=== PATIENT | male | born 1950 | race Caucasian/White ===

== ENCOUNTER → 2017-09-02 | Outpatient (CLI) | payer MEDICARE ==
--- NOTE | 2017-09-02 14:32 | XR ---
EXAMINATION TYPE: XR chest 2V DATE OF EXAM: 09/02/2017 COMPARISON: Chest x-ray October 05, 2013. HISTORY: Persistent cough for 2 weeks. TECHNIQUE: Frontal and lateral views of the chest are obtained. FINDINGS: There is no focal air space opacity, pleural effusion, or pneumothorax seen. The cardiac silhouette size is within normal limits. The osseous structures are demineralized. IMPRESSION: No suspicious acute infiltrate. No significant change from prior.
== END | disposition home or self-care (01) ==
LOC: RADXRMAIN 14:13
PROVIDERS: ATTEND Internal Medicine Geriatric Medicine
DX: R05 Cough (principal)
CPT/HCPCS: 71046

== ENCOUNTER 2018-11-25 11:43 | Day surgery (SDC) | payer MEDICARE ==
[2018-11-22 15:48] VITALS: BMI 30.9
[~2018-11-25 11:43] MED LIST: LACTATED RINGERS 1,000 ML IV SCH
[2018-11-25 12:36] VITALS: RESP 16; TEMP 98.1
[2018-11-25] MEDS ORDERED: LIDOCAINE 1% 20 ML VIAL (10MG/ML) FOR IV START INTRADERMA ONE (12:46)
[2018-11-25] MEDS ORDERED: PROPOFOL 10 MG/ML 20 ML VIAL IV ONE (13:29)
--- NOTE | 2018-11-25 13:49 | P.PCN ---
Date of Procedure: 11/25/18 Procedure(s) Performed: BRIEF HISTORY: Patient is a 68-year-old pleasant white male male, scheduled for an elective colonoscopy as a part of evaluation of prior history of colon polyps. Last colonoscopy was 5 years ago. PROCEDURE PERFORMED: Colonoscopy. PREOPERATIVE DIAGNOSIS: History of colon polyps. IV sedation per Anesthesia. PROCEDURE: After informed consent was obtained, the patient, was brought into the endoscopy unit. IV sedation was administered by Anesthesia under continuous monitoring. Digital rectal examination was normal. Initially the Olympus CF-160 flexible video colonoscope was then inserted in the rectum, gradually advanced into the cecum without any difficulty. Careful examination was performed as the scope was gradually being withdrawn. Ileocecal valve and the appendiceal orifice were visualized and appeared normal. Prep was excellent. Mucosa of the cecum, ascending colon, transverse colon, descending colon, sigmoid colon, and rectum appeared normal. Retroflexion was performed in the rectum and no lesions were seen. The patient tolerated the procedure well. IMPRESSION: Normal-appearing colon from rectum to cecum with no evidence of colitis or colorectal neoplasia . RECOMMENDATIONS: Findings of this examination were discussed with the patient as well as his family. He was advised to have a repeat surveillance colonoscopy in 5 years from now because of the prior history of colon polyps
[2018-11-25 14:18] VITALS: BP 157/81; PULSE 63
== END 2018-11-25 14:33 | disposition home or self-care (01) ==
LOC: ORWHC2ENDO 11:43
PROVIDERS: ATTEND Internal Medicine Gastroenterology
DX: Z12.11 Encounter for screening for malignant neoplasm of colon (principal); Z86.010 Personal history of colon polyps; Z88.0 Allergy status to penicillin; E78.5 Hyperlipidemia, unspecified; K21.9 Gastro-esophageal reflux disease without esophagitis; M19.90 Unspecified osteoarthritis, unspecified site; Z79.82 Long term (current) use of aspirin; Z79.899 Other long term (current) drug therapy
CPT/HCPCS: J2704; G0105

== ENCOUNTER → 2019-03-06 | Outpatient (CLI) | payer MEDICARE ==
--- NOTE | 2019-03-06 14:51 | XR ---
EXAMINATION TYPE: XR lumbar spine 2 or 3V DATE OF EXAM: 03/06/2019 Comparison: None Clinical History: 69-year-old male M54.9 Back pain Findings: Hypertrophic facet arthropathy throughout. Grade 1 anterolisthesis at L4-L5. Mild degenerative disc d isease throughout with disc space narrowing and endplate spondylosis. Vertebral body heights appear m aintained. Disc height loss thoracolumbar junction. Impression: 1. Mild degenerative disc disease throughout. 2. Hypertrophic facet arthropathy with degenerative grade 1 anterolisthesis at L4-L5. 3. No vertebral compression collapse.
== END | disposition home or self-care (01) ==
LOC: RADXRMAIN 10:39
PROVIDERS: ATTEND Internal Medicine Geriatric Medicine
DX: M51.37 Other intervertebral disc degeneration, lumbosacral region (principal); M43.16 Spondylolisthesis, lumbar region; M46.96 Unspecified inflammatory spondylopathy, lumbar region
CPT/HCPCS: 72100

== ENCOUNTER → 2020-10-23 | Outpatient (CLI) | payer MEDICARE ==
[2020-10-23 09:03] VITALS: BP 162/75; PULSE 69; RESP 16; TEMP 97.6
--- NOTE | 2020-10-23 09:28 | P.PAINCN ---
History of Present Illness - Reason for Consult Consult date: 10/23/20 - History of Present Illness This 70 years old male with a chronic history of severe low back pain, accident 20 years ago after he fell on ice, patient reported that intensity of the pain increased over time he had multiple interventional pain procedures, and the last procedure was done in February 2020, which was RFA of the medial branch lumbar area ,L3,L4 L5 ,bila , patient reported that he got around 80% improvement of his low back pain after an RFA, currently is complaining of severe low back pain with radiation to the buttock area bilaterally, to instill the pain increases with any activity interfere with the quality of life, and trying to do home exercise and he had no benefit from it , he denies any motor or sensory deficit he denies any fever or night sweats Past Medical History Past Medical History: Blood Disorder, Hyperlipidemia, Musculoskeletal Disorder, Osteoarthritis (OA) Additional Past Medical History / Comment(s): back pain,spinal stenosis HX OF SPHEROCYTOSIS, hx colon polyps History of Any Multi-Drug Resistant Organisms: None Reported Past Surgical History: Joint Replacement, Orthopedic Surgery Additional Past Surgical History / Comment(s): both knees replaced, left knee surg., SPLENECTOMY, KYLE CARPAL TUNNEL,KYLE HAND 4TH FINGER TRIGGER RELEASE, RT ROTATOR CUFF, left foot surgery Past Anesthesia/Blood Transfusion Reactions: No Reported Reaction Past Psychological History: No Psychological Hx Reported Smoking Status: Former smoker Past Alcohol Use History: Occasional Additional Past Alcohol Use History / Comment(s): quit smoking ,smoked approx 20 yrs Past Drug Use History: None Reported - Past Family History Father Family Medical History: No Reported History Medications and Allergies Home Medications Medication Instructions Recorded Confirmed Type Aspirin 325 mg PO DAILY 11/22/18 10/23/20 History Loratadine [Claritin] 10 mg PO DAILY 11/22/18 10/23/20 History Conway-3 Fatty Acids/Fish Oil [Fish 400 mg PO DAILY 11/22/18 10/23/20 History Oil 1,000 mg Softgel] Omeprazole [PriLOSEC] 20 mg PO DAILY 11/22/18 10/23/20 History Gabapentin 600 mg PO TID 10/22/20 10/23/20 History Losartan Potassium 50 mg PO DAILY 10/22/20 10/23/20 History Pravastatin Sodium [Pravachol] 40 mg PO DAILY 10/22/20 10/23/20 History Allergies Allergy/AdvReac Type Severity Reaction Status Date / Time Penicillins Allergy Anaphylaxis Verified 10/22/20 16:02 Physical Exam Vitals: Vital Signs Temp Pulse Resp BP Pulse Ox 10/23/20 08:59 97.6 F 69 16 162/75 99 Intake and Output 10/22/20 10/23/20 10/23/20 22:59 06:59 14:59 Other: Weight 87.543 kg Physical Examinations : -Constitutiona : Cooperative , not in acute distress . -HEENT : nech : supple , no Lymphadenopathy , normal thyroid size . : eyes : no ptosis , no icterus, no phot ophobia . - neurologic : Cranial nerve II to XII intact , no focal neurological deffecit . -psychatric : alert , oriented X 3 , appropriate affect , intact judgment and insight . -Lymphatic : no Lymphadenopathy . - musculoskeltal : Lumber spine moter stegnth lower extremities ,thigh and legs 5/5 Right side , 5/5 Left side deep tendon reflexes : normal Knee Jerk , normal ankle Jerk lumber facet Loading Test =positive Right , positive Left Range of motion of the lumbar spine Flexion 30 degrees, extension 10 degrees strait leg raising test = positive at 45 degree Fabere test= positive Right , and positive LT . tenderness over the Sacroiliac joint on the Right , and Left sides Results Comments: MRI of the lumbar spine= L3 4 L4 5 central canal stenosis, L3 4 L4 5 bulging disc disease, L3 4 L4 5 and L5-S1 facet joint hypertrophy Assessment and Plan Plan: Assessment and plan=1-Lumbar spondylosis with lumbar facet arthropathy without myelopathy. 2-lumbar spinal stenosis. 3-lumbar degenerative disc disease. Patient had RFA of the medial branch lumbar area done last year, he had 80% improvement of his low back pain, and to be good cand idate Her repeat RFA of the medial branch lumbar area at L3,L4 ,L5 bilaterally Time with Patient: Greater than 30 PQRS Measure Charge Sheet Measure #130: Documentation of Current Meds in Medical Chart: Patient's medications documented in chart Measure #226: Tobacco Use: Screen & Cessation Intervention: Pt screened for tobacco use AND intervention given Measure #111: Pneumonia Vaccination: Pneumococcal vaccine NOT administered or previously given Measure #47: Advance Care Plan: Advance care planning discussed & documented, pt chose/unable to give Measure #412: Opioid Treatment Agreement: No documentation of signed opioid treatment agreement Measure #408: Opioid Therapy Follow-up Evaluation: Patient had NO f/u eval minimum every 3 months during opioid therapy Measure #317: Preventitive Care & Scrn High Bld Press & F/U: Pre-hypertensive or hypertensive BP documented, pt will f/u with PCP Measure #128: Body Mass Index (BMI) Screening & Follow-up: BMI documented ABOVE normal parameters - f/u documented Measure #131: Pain Assessment & Follow-up: Pain positive & plan documented, Follow-up scheduled Measure #431: Unhealthy Alcohol Use Preventative Care & Scrn: Patient not identified as an unhealthy alcohol user PQRS Narrative: Smoking Status Former smoker Blood Pressure 162/75 Pain Intensity [Back] 5 Scale Used Numeric (1 - 10) Hx Alcohol Use (MH) Yes Home Medications: Ambulatory Orders Aspirin 325 mg PO DAILY 11/22/18 Loratadine [Claritin] 10 mg PO DAILY 11/22/18 Conway-3 Fatty Acids/Fish Oil [Fish Oil 1,000 mg Softgel] 400 mg PO DAILY 11/22/18 Omeprazole [PriLOSEC] 20 mg PO DAILY 11/22/18 Gabapentin 600 mg PO TID 10/22/20 Losartan Potassium 50 mg PO DAILY 10/22/20 Pravastatin Sodium [Pravachol] 40 mg PO DAILY 10/22/20
== END ==
LOC: PNWHC3 08:11
PROVIDERS: ATTEND Specialist
DX: M47.816 Spondylosis without myelopathy or radiculopathy, lumbar region (principal); M51.36 Other intervertebral disc degeneration, lumbar region; M48.061 Spinal stenosis, lumbar region without neurogenic claudication; Z98.890 Other specified postprocedural states; E78.5 Hyperlipidemia, unspecified; M19.90 Unspecified osteoarthritis, unspecified site; Z87.891 Personal history of nicotine dependence; Z88.0 Allergy status to penicillin; Z79.899 Other long term (current) drug therapy
CPT/HCPCS: 99211

== ENCOUNTER 2020-11-12 05:38 | Emergency (ER) | payer MEDICARE ==
[2020-11-12 05:44] VITALS: RESP 18; TEMP 97.8
[2020-11-12] MEDS ORDERED: MORPHINE SULFATE 4 MG/ML SYRINGE IV STA (05:47)
[2020-11-12] MEDS ORDERED: SODIUM CHLORIDE 0.9% 1,000 ML IV STA (05:47)
--- NOTE | 2020-11-12 05:49 | ED ---
Abdominal Pain HPI - General Chief Complaint: Abdominal Pain Stated Complaint: Abd Pain Time Seen by Provider: 11/12/20 05:40 Source: patient, RN notes reviewed, old records reviewed Mode of arrival: wheelchair Limitations: no limitations - History of Present Illness Initial Comments: This is a 70-year-old male to the ER for evaluation. Patient started with abdominal pain epigastric abdominal pain radiating to his back with bolus and bloating that began last night. Patient was able to sleep but awoke will get up from sleep today. Patient is afebrile no sweating no shortness of breath. He did have a recent fall but states fall did not cause him any pain. Patient's history of a splenectomy. Recent starting of high blood pressure Medication b lood pressures been controlled MD Complaint: abdominal pain -: hour(s) Location: suprapubic Radiation: epigastric, back Migration to: L flank, R flank Severity scale (1-10): 7 Quality: sharp Consistency: constant Improves With: nothing Worsens With: nothing Context: other (none) Associated Symptoms: nausea Treatments Prior to Arrival: other (none) - Related Data Home Medications Medication Instructions Recorded Confirmed Loratadine [Claritin] 10 mg PO DAILY 11/22/18 11/12/20 Adamant-3 Fatty Acids/Fish Oil [Fish 1 cap PO DAILY 11/22/18 11/12/20 Oil 1,000 mg Softgel] Omeprazole [PriLOSEC] 20 mg PO DAILY 11/22/18 11/12/20 Losartan Potassium 50 mg PO DAILY 10/22/20 11/12/20 Pravastatin Sodium [Pravachol] 40 mg PO HS 10/22/20 11/12/20 Aspirin EC [Ecotrin] 325 mg PO DAILY 11/12/20 11/12/20 Gabapentin 600 mg PO TID 11/12/20 11/12/20 Allergies Allergy/AdvReac Type Severity Reaction Status Date / Time Penicillins Allergy Anaphylaxis Verified 11/12/20 07:23 Review of Systems ROS Statement: Those systems with pertinent positive or pertinent negative responses have been documented in the HPI. ROS Other: All systems not noted in ROS Statement are negative. Past Medical History Past Medical History: Blood Disorder, Hyperlipidemia, Musculoskeletal Disorder, Osteoarthritis (OA) Additional Past Medical History / Comment(s): back pain,spinal stenosis HX OF SPHEROCYTOSIS, hx colon polyps History of Any Multi-Drug Resistant Organisms: None Reported Past Surgical History: Joint Replacement, Orthopedic Surgery Additional Past Surgical History / Comment(s): both knees replaced, left knee surg., SPLENECTOMY, KYLE CARPAL TUNNEL,KYLE HAND 4TH FINGER TRIGGER RELEASE, RT ROTATOR CUFF, left foot surgery Past Anesthesia/Blood Transfusion Reactions: No Reported Reaction Past Psychological History: No Psychological Hx Reported Smoking Status: Former smoker Past Alcohol Use History: Occasional Past Drug Use History: None Reported - Past Family History Father Family Medical History: No Reported History General Exam General appearance: alert, in no apparent distress Head exam: Present: atraumatic, normocephalic, normal inspection Eye exam: Present: normal appearance, PERRL, EOMI. Absent: scleral icterus, c onjunctival injection, periorbital swelling ENT exam: Present: normal exam, mucous membranes moist Neck exam: Present: normal inspection. Absent: tenderness, meningismus, lymphadenopathy Respiratory exam: Present: normal lung sounds bilaterally. Absent: respiratory distress, wheezes, rales, rhonchi, stridor Cardiovascular Exam: Present: regular rate, normal rhythm, normal heart sounds. Absent: systolic murmur, diastolic murmur, rubs, gallop, clicks GI/Abdominal exam: Present: soft, distended, guarding, normal bowel sounds. Absent: tenderness, rebound, rigid Extremities exam: Present: normal inspection, full ROM, normal capillary refill. Absent: tenderness, pedal edema, joint swelling, calf tenderness Back exam: Present: normal inspection Neurological exam: Present: alert, oriented X3, CN II-XII intact Psychiatric exam: Present: normal affect, normal mood Skin exam: Present: warm, dry, intact, normal color. Absent: rash Course Vital Signs 11/12/20 11/12/20 05:42 08:03 Temperature 97.8 F 97.8 F Pulse Rate 65 74 Respiratory 18 18 Rate Blood Pressure 170/78 151/75 O2 Sat by Pulse 99 96 Oximetry - Reevaluation(s) Reevaluation #1: 11/12/20 06:47 Medical records reviewed Reevaluation #2: 11/12/20 06:47 Patient resting with pain control spoke with patient regarding results and findins, questions answered. Patient offered cardiac observation which he is currently refusing. Medical Decision Making - Medical Decision Making 70 male to the ED for abdominal pain, patient has abdominal pain now resolved, patient informed of results, understands that we are unable to clear him from a cardiac standpoint and that he will return if symptoms return. Patient does not wasn to stay for further evaluation. - Lab Data Result diagrams: 11/12/20 05:55 11/12/20 05:55 Lab Results 11/12/20 11/12/20 11/12/20 Range/Units 05:55 05:55 05:55 WBC 11.4 H (3.8-10.6) k/uL RBC 4.58 (4.30-5.90) m/uL Hgb 14.6 (13.0-17.5) gm/dL Hct 42.4 (39.0-53.0) % MCV 92.6 (80.0-100.0) fL MCH 31.9 (25.0-35.0) pg MCHC 34.4 (31.0-37.0) g/dL RDW 14.0 (11.5-15.5) % Plt Count 437 (150-450) k/uL MPV 8.9 Neutrophils % 59 % Lymphocytes % 30 % Monocytes % 6 % Eosinophils % 3 % Basophils % 1 % Neutrophils # 6.7 (1.3-7.7) k/uL Lymphocytes # 3.4 (1.0-4.8) k/uL Monocytes # 0.6 (0-1.0) k/uL Eosinophils # 0.4 (0-0.7) k/uL Basophils # 0.1 (0-0.2) k/uL Hyperchromasia Slight Poikilocytosis Slight PT (9.0-12.0) sec INR (<1.2) APTT (22.0-30.0) sec Sodium 139 (137-145) mmol/L Potassium 5.0 (3.5-5.1) mmol/L Chloride 105 (98-107) mmol/L Carbon Dioxide 26 (22-30) mmol/L Anion Gap 8 mmol/L BUN 16 (9-20) mg/dL Creatinine 0.64 L (0.66-1.25) mg/dL Est GFR (CKD-EPI)AfAm >90 (>60 ml/min/1.73 sqM) Est GFR (CKD-EPI)NonAf >90 (>60 ml/min/1.73 sqM) Glucose 116 H (74-99) mg/dL Lactic Ac Sepsis Rflx Plasma Lactic Acid Xander 2.3 H* (0.7-2.0) mmol/L Calcium 9.5 (8.4-10.2) mg/dL Phosphorus 5.9 H (2.5-4.5) mg/dL Magnesium 2.0 (1.6-2.3) mg/dL Total Bilirubin 0.8 (0.2-1.3) mg/dL AST 44 (17-59) U/L ALT 32 (4-49) U/L Alkaline Phosphatase 21 L (38-126) U/L Creatine Kinase 187 H (55-170) U/L Troponin I (0.000-0.034) ng/mL Total Protein 7.1 (6.3-8.2) g/dL Albumin 4.5 (3.5-5.0) g/dL Amylase 67 (30-110) U/L Lipase 138 (23-300) U/L 11/12/20 11/12/20 11/12/20 Range/Units 05:55 05:55 07:35 WBC (3.8-10.6) k/uL RBC (4.30-5.90) m/uL Hgb (13.0-17.5) gm/dL Hct (39.0-53.0) % MCV (80.0-100.0) fL MCH (25.0-35.0) pg MCHC (31.0-37.0) g/dL RDW (11.5-15.5) % Plt Count (150-450) k/uL MPV Neutrophils % % Lymphocytes % % Monocytes % % Eosinophils % % Basophils % % Neutrophils # (1.3-7.7) k/uL Lymphocytes # (1.0-4.8) k/uL Monocytes # (0-1.0) k/uL Eosinophils # (0-0.7) k/uL Basophils # (0-0.2) k/uL Hyperchromasia Poikilocytosis PT 10.1 (9.0-12.0) sec INR 0.9 (<1.2) APTT 22.6 (22.0-30.0) sec Sodium (137-145) mmol/L Potassium (3.5-5.1) mmol/L Chloride (98-107) mmol/L Carbon Dioxide (22-30) mmol/L Anion Gap mmol/L BUN (9-20) mg/dL Creatinine (0.66-1.25) mg/dL Est GFR (CKD-EPI)AfAm (>60 ml/min/1.73 sqM) Est GFR (CKD-EPI)NonAf (>60 ml/min/1.73 sqM) Glucose (74-99) mg/dL Lactic Ac Sepsis Rflx Y Plasma Lactic Acid Xander (0.7-2.0) mmol/L Calcium (8.4-10.2) mg/dL Phosphorus (2.5-4.5) mg/dL Magnesium (1.6-2.3) mg/dL Total Bilirubin (0.2-1.3) mg/dL AST (17-59) U/L ALT (4-49) U/L Alkaline Phosphatase (38-126) U/L Creatine Kinase (55-170) U/L Troponin I <0.012 (0.000-0.034) ng/mL Total Protein (6.3-8.2) g/dL Albumin (3.5-5.0) g/dL Amylase (30-110) U/L Lipase (23-300) U/L - Radiology Data Radiology results: report reviewed (CT a chest abd pelvis is negative for acute disaese), image reviewed Disposition Clinical Impression: Abdominal pain Disposition: HOME SELF-CARE Condition: Good Instructions (If sedation given, give patient instructions): Abdominal Pain (ED ) Is patient prescribed a controlled substance at d/c from ED?: No Referrals: Kee Jerez MD [Primary Care Provider] - 1-2 days
[2020-11-12 06:33] LABS: Basophils # (A) 0.1 k/uL (0-0.2); Basophils % (A) 1 %; Eosinophils # (A) 0.4 k/uL (0-0.7); Eosinophils % (A) 3 %; HCT 42.4 % (39.0-53.0); HGB 14.6 gm/dL (13.0-17.5); Hyperchromasia Slight; Lymphocytes # (A) 3.4 k/uL (1.0-4.8); Lymphocytes % (A) 30 %; MCH 31.9 pg (25.0-35.0); MCHC 34.4 g/dL (31.0-37.0); MCV 92.6 fL (80.0-100.0); Mean Platelet Volume 8.9; Monocytes # (A) 0.6 k/uL (0-1.0); Monocytes % (A) 6 %; Neutrophils # (A) 6.7 k/uL (1.3-7.7); Neutrophils % (A) 59 %; Platelet Count 437 k/uL (150-450); Poikilocytosis Slight; RBC 4.58 m/uL (4.30-5.90); WBC 11.4 k/uL (3.8-10.6)
[2020-11-12 06:41] LABS: INR 0.9 (<1.2); Partial Thromboplastin Time 22.6 sec (22.0-30.0); Prothrombin Time 10.1 sec (9.0-12.0)
[2020-11-12 06:51] LABS: ALT 32 U/L (4-49); AST 44 U/L (17-59); African American GFR (CKD) >90 (>60 ml/min/1.73 sqM); Albumin 4.5 g/dL (3.5-5.0); Alkaline Phosphatase 21 U/L (38-126); Amylase 67 U/L (30-110); Anion Gap 8 mmol/L; Blood Urea Nitrogen 16 mg/dL (9-20); Calcium 9.5 mg/dL (8.4-10.2); Carbon Dioxide 26 mmol/L (22-30); Chloride 105 mmol/L (98-107); Glucose 116 mg/dL (74-99); Lipase 138 U/L (23-300); Non-African American GFR(CKD) >90 (>60 ml/min/1.73 sqM); Phosphorus 5.9 mg/dL (2.5-4.5); Sodium 139 mmol/L (137-145); Total Bilirubin 0.8 mg/dL (0.2-1.3); Total Protein 7.1 g/dL (6.3-8.2)
[2020-11-12 07:20] LABS: Creatine Kinase 187 U/L (55-170)
--- NOTE | 2020-11-12 07:33 | CT ---
EXAMINATION TYPE: CT angio chest DATE OF EXAM: 11/12/2020 COMPARISON: None HISTORY: Epigastric pain CT DLP: 1907.9 (CTA chest CT abd pelvis) mGycm CONTRAST: CT chest with contrast and 3D reconstruction with MIP imaging is performed with IV Contrast, patient injected with 100 mL of Isovue 370. Contrast-enhanced CT of the chest was performed through the course of the pulmonary arteries with kyle g and mediastinal window settings submitted. 3D reconstruction with MIP imaging was also performed. PULMONARY ARTERIES: The pulmonary arteries and their major tributaries are patent. I do not see renuka dence for sizable filling defect to suggest pulmonary embolic process. LUNGS: The lungs are clear and free of infiltrate. No evidence for atelectasis. No pulmonary nodule or mass is detected. No pleural effusion. MEDIASTINUM: Thoracic aorta is of normal caliber,however, evaluation is limited given timing of the contrast bolus. If there is concern for thoracic aortic pathology consider AIDA. Correlate clinicall y . The heart is not enlarged. No evidence for mediastinal mass. No mediastinal lymph nodes greater than 1cm. HILAR STRUCTURES: No evidence for mass. No hilar lymph nodes greater than 1 cm. UPPER ABDOMEN: No significant abnormality is seen. IMPRESSION: 1. No evidence for Pulmonary embolism at this time.
--- NOTE | 2020-11-12 07:39 | CT ---
EXAMINATION TYPE: CT abdomen pelvis w con DATE OF EXAM: 11/12/2020 COMPARISON: none HISTORY: 1906.9 (CTA chest CT abd pelvis) CT DLP: 1907.9 (CTA chest CT abd pelvis) mGycm CONTRAST: CT scan of the abdomen and pelvis is performed without Oral Contrast and with IV Contrast, patient in jected with 100 mL of Isovue 370. FINDINGS: LUNG BASES-: No visible nodule. No infiltrate. LIVER/GB: No calcified gallstones. Hepatic steatosis. No space occupying hepatic lesion. Biliary tr ee is of normal caliber. PANCREAS: No inflammation. No distinct mass. SPLEEN: No splenic enlargement. No lesion seen. ADRENALS: No nodule. No thickening. KIDNEYS/BLADDER: No hydronephrosis. No nephrolithiasis. No distinct renal mass. Urinary bladder g rossly unremarkable. BOWEL: Normal appendix. Normal bowel caliber. No inflammation. GENITAL ORGANS: Prostate enlargement and calcifications. LYMPH NODES: No greater than 1cm abdominal or pelvic lymph nodes are appreciated. AORTA: No significant abnormality. OSSEOUS STRUCTURES: No significant abnormality is seen. OTHER: No significant additional abnormality is seen. IMPRESSION: 1. No significant abnormality appreciated to account for the patient's symptoms.
[2020-11-12 08:03] VITALS: BP 151/75; PULSE 74
== END 2020-11-12 08:06 | disposition home or self-care (01) ==
LOC: EC 05:38
DX: R10.13 Epigastric pain (principal); R11.0 Nausea; R14.0 Abdominal distension (gaseous); E78.5 Hyperlipidemia, unspecified; M19.90 Unspecified osteoarthritis, unspecified site; Z79.82 Long term (current) use of aspirin; Z79.899 Other long term (current) drug therapy; Z87.19 Personal history of other diseases of the digestive system; Z87.891 Personal history of nicotine dependence; Z88.0 Allergy status to penicillin; Z90.81 Acquired absence of spleen
CPT/HCPCS: 80053; 82150; 82550; 83605; 83690; 83735; 84100; 84484; 85025; 85610; 85730; 71275; 74177; 99284; 96374; 96361; J2270; Q9967

== ENCOUNTER 2020-11-29 08:01 | Day surgery (SDC) | payer MEDICARE ==
[2020-11-28 10:59] VITALS: BMI 33.6
[2020-11-29 08:29] VITALS: RESP 16; TEMP 96.9
[2020-11-29] MEDS ORDERED: LACTATED RINGERS 1,000 ML IV ONE (08:41)
[2020-11-29] MEDS ORDERED: MIDAZOLAM 2 MG/2 ML VIAL ONE (08:44)
[2020-11-29] MEDS ORDERED: LIDOCAINE 1% INJ 10MG/ML (20 ML MDV) ONE (08:44)
[2020-11-29] MEDS ORDERED: ROPIVACAINE 5MG/ML 20ML VIAL ONE (08:44)
[2020-11-29] MEDS ORDERED: fentaNYL (PF) 50 MCG/ML 2 ML AMP ONE (08:44)
--- NOTE | 2020-11-29 09:15 | P.PCN ---
Date of Procedure: 11/29/20 Description of Procedure: PREOPERATIVE DIAGNOSIS: Lumbar Spondylosis POSTOPERATIVE DIAGNOSIS: Same PROCEDURES: Radiofrequency ablation of the L3, L4, L5 medial branches with fluoroscopic guidance bilaterally SURGEON: Rick Sheppard MD. ANESTHESIA: Lidocaine 1% 5 mL, Monitored anesthesia care with anesthesia team EBL: Minimal Fluoroscopy was used for the procedure and images were saved in the radiology portion of the chart. PROCEDURE INDICATION: The patient with low back pain secondary to lumbar facet arthropathy who had more than 50% relief of pain with previous diagnostic lumbar medial branch block X2. PROCEDURE DESCRIPTION / TECHNIQUE: The patient was seen and identified in the preoperative area. Risks, benefits, complications, including but not limited to risk of infection ,bleeding , allergic reactions to the medications and incomplete pain relief , and alternatives were discussed with the patient, the patient agreed to proceed with the procedure and signed the consent. IV was started. The operative site was marked. Patient was taken to the OR and time out was completed. The patient was placed in the prone position on the procedure table. The lumbar area was prepped and draped in the usual sterile fashion. . Vital signs were closely monitored during the procedure .IV sedation was used during the procedure to decrease patients anxiety. Using AP and then oblique fluoroscopy, the "eye of the Jose Ramon dog" corresponding to the connection between the superior and transverse articular processes of the L4 and L5 as well as the sacral ala were identified, marked, and localized with 1% lidocaine. Subsequently, an 18 guage 100/150-mm radiofrequency cannula with a 10-mm active tip was advanced guided by fluoroscopy to the identified target at each site. Needle positioning was confirmed on AP, oblique and lateral fluoroscopy. Motor testing at 2.5 Hz was done with paraspinal muscle stimulation only, and no radicular symptoms down the legs. Then 1 mL 0.5% ropivacaine was injected in each site. Radiofrequency thermocoagulation at 80 degrees celsius for 90 seconds was then performed. [place] were removed. Sterile dressings were applied. COMPLICATIONS: No acute complications. DISPOSITION / PLANS: The patient was placed in a supine position and transferred to the recovery area in a stable condition for observation and was discharged from the recovery room after meeting discharge criteria. Home discharge instructions given to the patient by the staff. The patient will follow up in clinic in 4 weeks.
[2020-11-29] MEDS ORDERED: IV FLUID CONTINUATION 1,000 ML IV ONE ×2 (09:21)
--- NOTE | 2020-11-29 09:32 | FL ---
Fluoroscopy INDICATION: Pain FINDINGS: Fluoroscopy time: 30 seconds. Images obtained: 0. IMPRESSIONS: 1. Documentation of fluoroscopy.
[2020-11-29 09:37] VITALS: BP 117/78; PULSE 72
== END 2020-11-29 10:11 | disposition home or self-care (01) ==
LOC: ORPAIN 08:01
PROVIDERS: ATTEND Anesthesiology
DX: M47.816 Spondylosis without myelopathy or radiculopathy, lumbar region (principal); Z88.0 Allergy status to penicillin; I10 Essential (primary) hypertension; E78.5 Hyperlipidemia, unspecified; Z87.891 Personal history of nicotine dependence; K21.9 Gastro-esophageal reflux disease without esophagitis; Z79.899 Other long term (current) drug therapy
CPT/HCPCS: 64635; 64636; J2250; J2001; J3010; J2795

== ENCOUNTER → 2020-12-25 | Outpatient (CLI) | payer MEDICARE ==
[2020-12-25 09:48] VITALS: BP 148/67; PULSE 67; RESP 16; TEMP 98
--- NOTE | 2020-12-25 09:58 | P.PN ---
Subjective Progress Note Date: 12/25/20 This is follow up visit for this 70 years old male with a chronic history of sev ere low back pain, is diagnosed with lumbar spondylosis with lumbar facet arthropathy and lumbar degenerative disc disease and lumbar spinal stenosis, recently we have done RFA of the medial branch lumbar area ,L3,L4 L5 ,bilateral , patient reported that he got around 50-60% improvement of his low back pain after an RFA, currently is complaining of severe low back pain with radiation to the buttock area bilaterally, to instill the pain increases with any activity interfere with the quality of life, and trying to do home exercise and he had no benefit from it , he denies any motor or sensory deficit he denies any fever or night sweats Physical Examinations : -Constitutiona : Cooperative , not in acute distress . -HEENT : nech : supple , no Lymphadenopathy , normal thyroid size . : eyes : no ptosis , no icterus, no photophobia . - neurologic : Cranial nerve II to XII intact , no focal neurological deffecit . -psychatric : alert , oriented X 3 , appropriate affect , intact judgment and insight . -Lymphatic : no Lymphadenopathy . - musculoskeltal : Lumber spine moter stegnth lower extremities ,thigh and legs 5/5 Right side , 5/5 Left side deep tendon reflexes : normal Knee Jerk , normal ankle Jerk lumber facet Loading Test =positive Right , positive Left Range of motion of the lumbar spine Flexion 30 degrees, extension 10 degrees strait leg raising test = positive at 45 degree Fabere test= positive Right , and positive LT . tenderness over the Sacroiliac joint on the Right , and Left sides MRI of the lumbar spine= L3 4 L4 5 central canal stenosis, L3 4 L4 5 bulging disc disease, L3 4 L4 5 and L5-S1 facet joint hypertrophy Assessment and plan=1-Lumbar spondylosis with lumbar facet arthropathy without myelopathy. 2-lumbar spinal stenosis. 3-lumbar degenerative disc disease. status post RFA of the medial branch lumbar area . She could benefit from lumbar epidural steroid injection at L4 5 level PQRS Measure Charge Sheet Measure #130: Documentation of Current Meds in Medical Chart: Patient's med ications documented in chart Measure #226: Tobacco Use: Screen & Cessation Intervention: Pt screened for tobacco use AND intervention given Measure #111: Pneumonia Vaccination: Pneumococcal vaccine NOT administered or previously given Measure #47: Advance Care Plan: Advance care planning discussed & documented, pt chose/unable to give Measure #412: Opioid Treatment Agreement: No documentation of signed opioid treatment agreement Measure #408: Opioid Therapy Follow-up Evaluation: Patient had NO f/u eval minimum every 3 months during opioid therapy Measure #317: Preventitive Care & Scrn High Bld Press & F/U: Pre-hypertensive or hypertensive BP documented, pt will f/u with PCP Measure #128: Body Mass Index (BMI) Screening & Follow-up: BMI documented ABOVE normal parameters - f/u documented Measure #131: Pain Assessment & Follow-up: Pain positive & plan documented, Follow-up scheduled Measure #431: Unhealthy Alcohol Use Preventative Care & Scrn: Patient not identified as an unhealthy alcohol user PQRS Narrative: Objective - Vital Signs Vital signs: Vital Signs Temp 98.0 F 12/25/20 09:42 Pulse 67 12/25/20 09:42 Resp 16 12/25/20 09:42 BP 148/67 12/25/20 09:42 Pulse Ox 99 12/25/20 09:42 Intake & Output 12/24/20 12/25/20 12/25/20 18:59 06:59 18:59 Weight 89.811 kg
== END ==
LOC: PNWHC3 08:43
PROVIDERS: ATTEND Specialist
DX: M47.816 Spondylosis without myelopathy or radiculopathy, lumbar region (principal); M51.36 Other intervertebral disc degeneration, lumbar region; M48.061 Spinal stenosis, lumbar region without neurogenic claudication; Z87.891 Personal history of nicotine dependence; Z88.0 Allergy status to penicillin
CPT/HCPCS: 99211

== ENCOUNTER 2021-01-23 07:34 | Day surgery (SDC) | payer MEDICARE ==
[2021-01-22 08:40] VITALS: BMI 34.0
[2021-01-23 07:59] VITALS: RESP 16; TEMP 97.6
[2021-01-23] MEDS ORDERED: LIDOCAINE 1% (10MG/ML) FOR IV START INTRADERMA ONE (08:06)
[2021-01-23] MEDS ORDERED: MIDAZOLAM 2 MG/2 ML VIAL ONE (08:47)
[2021-01-23] MEDS ORDERED: fentaNYL (PF) 50 MCG/ML 2 ML AMP ONE (08:47)
[2021-01-23] MEDS ORDERED: IOPAMIDOL M200 10 ML VIAL ONE (08:47)
[2021-01-23] MEDS ORDERED: TRIAMCINOLONE ACETONIDE 40 MG/ML 1 ML VIAL ONE (08:47)
[2021-01-23] MEDS ORDERED: ROPIVACAINE 5MG/ML 20ML VIAL ONE (08:47)
--- NOTE | 2021-01-23 08:57 | P.PCN ---
Date of Procedure: 01/23/21 Surgeon: Yolette Bassett Pathology: none sent Condition: stable Disposition: PACU Description of Procedure: PREOPERATIVE DIAGNOSIS: 1-Lumbar radiculopathy 2- Lumber Degenerative Disc Diseases. POSTOPERATIVE DIAGNOSIS: 1-Lumbar stenosis. 2-Lumbar Degenerative Disc Diseases PROCEDURE 1. Lumbar epidural steroid injection under fluoroscopic guidance at the L4-5 level. 2. Lumbar epidurogram. ANESTHESIA: Local with 1% lidocaine; and IV moderate conscious sedation with Versed and fentanyl EBL: Minimal PROCEDURE INDICATION: The patient with low back pain and radiculitis symptoms unresponsive to conservative treatment. Fluoroscopy was used to optimize visualization of the needle placement and to maximize safety. PROCEDURE DESCRIPTION / TECHNIQUE: The patient was seen and identified in the preoperative area. Risks, benefits, complications including but not limited to infections ,bleeding ,allergic reaction to the medications ,nerve damage and not complete pain relief , and alternatives were discussed with the patient. The patient agreed to proceed with the procedure and signed the consent. IV was started, and vital signs were stable. Patient was taken to the OR and time out was completed. The patient was placed in the prone position on procedure table and a pillow was placed under the abdomen to reduce lumbar lordosis. The lumbosacral area was prepped and draped in the usual sterile fashion with ChloraPrep.Patient was closely monitored during the procedure. Conscious sedation was used during the procedure to decrease patients anxiety. Vital signs were monitered during the entire procedure. Using anterior-posterior fluoroscopy, the L4-5 interlaminar space was identified and the skin over this site was marked and then infiltrated with 1% lidocaine subcutaneously. Subsequently, a 20-gauge Tuohy epidural needle was inserted and advanced toward the epidural space using the Loss of resistance to air technique and guided by AP and lateral fluoroscopy. The correct needle position in the epidural space was verified with the injection of 1 mL of the water soluble contrast dye Omnipaque 180 contrast and observing an excellent epidurogram with the epidural spread of the dye, after negative aspiration for blood and CSF and in the absence of paresthesias. Again after negative aspiration, a 8 ml mixture containing 40 mg of Kenalog and 5 ml of preservative free Normal Saline, and 2 ml of preservative free ropivacaine 0.5% solution was injected and a washout of epidurogram was seen. Needle was withdrawn intact, skin was cleansed, and bandages were applied. patient tolerated procedure well and was transferred to PACU in stable condition.A copy of the needle placement picture was saved to the fluoroscopy machine. COMPLICATIONS: None DISPOSITION / PLANS: The patient was placed in a supine position and transferred to the recovery area in a stable condition for observation. There was no evidence of lower extremity motor or sensory deficit after the procedure. Patient was discharged from the recovery room after meeting discharge criteria. Home discharge instructions were given to the patient by the staff. The patient was reexamined prior to discharge. The patient will schedule a follow up in the clinic in 2-4 weeks.
--- NOTE | 2021-01-23 09:11 | FL ---
EXAMINATION TYPE: FL guided pain mgmt statistic DATE OF EXAM: 01/23/2021 CLINICAL HISTORY: Low back pain. TECHNIQUE: Fluoroscopy. COMPARISON: None. FINDINGS: Fluoroscopic guidance was provided during pain relief procedure performed by Dr. Bassett . A total of 16 seconds of fluoroscopic time was utilized during the procedure and two spot images ar e acquired. Images acquired shows needle localization at superior L4 level with contrast injection. IMPRESSION: As Above.
[2021-01-23 09:20] VITALS: BP 145/70; PULSE 70
[2021-01-23] MEDS ORDERED: LACTATED RINGERS 1,000 ML IV ONE (09:22)
[2021-01-23] MEDS ORDERED: IV FLUID CONTINUATION 800 ML IV ONE (09:22)
== END 2021-01-23 09:34 | disposition home or self-care (01) ==
LOC: ORPAIN 07:34
PROVIDERS: ATTEND Anesthesiology
DX: M51.16 Intervertebral disc disorders with radiculopathy, lumbar region (principal); M48.061 Spinal stenosis, lumbar region without neurogenic claudication; Z79.82 Long term (current) use of aspirin; E66.9 Obesity, unspecified; Z68.34 Body mass index [BMI] 34.0-34.9, adult
CPT/HCPCS: 62323; J2250; J3301; J3010; Q9966; J2795

== ENCOUNTER 2021-02-20 06:29 | Day surgery (SDC) | payer MEDICARE ==
[2021-02-18 13:19] VITALS: BMI 34.0
[2021-02-20 07:08] VITALS: RESP 16; TEMP 97.6
[2021-02-20] MEDS ORDERED: LIDOCAINE 1% (10MG/ML) FOR IV START INTRADERMA ONE (07:13)
[2021-02-20] MEDS ORDERED: fentaNYL (PF) 50 MCG/ML 2 ML AMP ONE (07:49)
[2021-02-20] MEDS ORDERED: TRIAMCINOLONE ACETONIDE 40 MG/ML 1 ML VIAL ONE (07:49)
[2021-02-20] MEDS ORDERED: MIDAZOLAM 2 MG/2 ML VIAL ONE (07:49)
[2021-02-20] MEDS ORDERED: ROPIVACAINE 5MG/ML 20ML VIAL ONE (07:49)
[2021-02-20] MEDS ORDERED: IOPAMIDOL M200 10 ML VIAL ONE (07:49)
--- NOTE | 2021-02-20 08:04 | P.PCN ---
Date of Procedure: 02/20/21 Surgeon: Yolette Bassett Description of Procedure: PREOPERATIVE DIAGNOSIS: 1-Lumbar stenosis 2- Lumber Degenerative Disc Diseases. POSTOPERATIVE DIAGNOSIS: 1-Lumbar stenosis. 2-Lumbar Degenerative Disc Diseases PROCEDURE 1. Lumbar epidural steroid injection under fluoroscopic guidance at the L4-5 level. 2. Lumbar epidurogram. ANESTHESIA: Local with 1% lidocaine; and IV moderate conscious sedation with Versed and fentanyl EBL: Minimal PROCEDURE INDICATION: The patient with low back pain and radiculitis symptoms unresponsive to conservative treatment. Fluoroscopy was used to optimize visualization of the needle placement and to maximize safety. PROCEDURE DESCRIPTION / TECHNIQUE: The patient was seen and identified in the preoperative area. Risks, benefits, complications including but not limited to infections ,bleeding ,allergic reaction to the medications ,nerve damage and not complete pain relief , and alternatives were discussed with the patient. The patient agreed to proceed with the procedure and signed the consent. IV was started, and vital signs were stable. Patient was taken to the OR and time out was completed. The patient was placed in the prone position on procedure table and a pillow was placed under the abdomen to reduce lumbar lordosis. The lumbosacral area was prepped and draped in the usual sterile fashion with ChloraPrep.Patient was closely monitored during the procedure. Conscious sedation was used during the procedure to decrease patients anxiety. Vital signs were monitered during the entire procedure. Using anterior-posterior fluoroscopy, the L4-5 interlaminar space was identified and the skin over this site was marked and then infiltrated with 1% lidocaine subcutaneously. Subsequently, a 20-gauge Tuohy epidural needle was inserted and advanced toward the epidural space using the Loss of resistance to air technique and guided by AP and lateral fluoroscopy. The correct needle position in the epidural space was verified with the injection of 1 mL of the water soluble contrast dye Omnipaque 180 contrast and observing an excellent epidurogram with the epidural spread of the dye, after negative aspiration for blood and CSF and in the absence of paresthesias. Again after negative aspiration, a 8 ml mixture containing 40 mg of Kenalog and 5 ml of preservative free Normal Saline, and 2 ml of preservative free ropivacaine 0.5% solution was injected and a washout of epidurogram was seen. Needle was withdrawn intact, skin was cleansed, and bandages were applied. patient tolerated procedure well and was transferred to PACU in stable condition.A copy of the needle placement picture was saved to the fluoroscopy machine. COMPLICATIONS: None DISPOSITION / PLANS: The patient was placed in a supine position and transferred to the recovery area in a stable condition for observation. There was no renuka dence of lower extremity motor or sensory deficit after the procedure. Patient was discharged from the recovery room after meeting discharge criteria. Home discharge instructions were given to the patient by the staff. The patient was reexamined prior to discharge. The patient will schedule a follow up in the clinic in 2-4 weeks.
[2021-02-20 08:26] VITALS: BP 136/654; PULSE 57
[2021-02-20] MEDS ORDERED: IV FLUID CONTINUATION 1,000 ML IV ONE (08:32)
--- NOTE | 2021-02-20 09:41 | FL ---
EXAMINATION TYPE: FL guided pain mgmt statistic DATE OF EXAM: 02/20/2021 CLINICAL HISTORY: Low back pain. TECHNIQUE: Fluoroscopy. COMPARISON: None. FINDINGS: Fluoroscopic guidance was provided during pain relief procedure performed by Dr. Bassett . A total of 4 seconds of fluoroscopic time was utilized during the procedure and 1 spot images are a cquired. Single image acquired shows needle localization at L4-L5 epidural level with contrast injec tion. IMPRESSION: As Above.
== END 2021-02-20 08:39 | disposition home or self-care (01) ==
LOC: ORPAIN 06:29
PROVIDERS: ATTEND Anesthesiology
DX: M48.061 Spinal stenosis, lumbar region without neurogenic claudication (principal); M51.36 Other intervertebral disc degeneration, lumbar region
CPT/HCPCS: 62323; J2250; J3301; J3010; Q9966; J2795

== ENCOUNTER → 2024-03-31 | Outpatient (CLI) | payer MEDICARE ==
[2024-03-31 13:26] LABS: Partial Thromboplastin Time 23.4 sec (22.0-30.0); Prothrombin Time 10.6 sec (10.0-12.5)
[2024-03-31 18:30] LABS: HCT 40.2 % (39.6-50.0); HGB 13.6 g/dL (13.0-17.0); MCH 31.3 pg (27.0-32.0); MCHC 33.8 g/dL (32.0-37.0); MCV 92.4 FL (80.0-97.0); Mean Platelet Volume 11.1 FL (9.5-12.2); NRBC Per 100 WBC 0 X 10*3/uL (0.00-0.01); Platelet Count 522 X 10*3/uL (140-440); RBC 4.35 X 10*6/uL (4.40-5.60); RDW 13.5 % (11.5-14.5)
[2024-03-31 21:12] LABS: ALT 19 U/L (10-49); AST 21 U/L (14-35); Albumin 4.2 g/dL (3.8-4.9); Albumin/Globulin Ratio 1.83 Ratio (1.60-3.17); Alkaline Phosphatase 29 U/L (41-126); BUN/Creat Ratio 23.29 Ratio (12.00-20.00); Blood Urea Nitrogen 16.3 mg/dL (9.0-27.0); Calcium 9.3 mg/dL (8.7-10.3); Carbon Dioxide 24.6 mmol/L (21.6-31.8); Chloride 104 mmol/L (96-109); Globulin 2.3 g/dL (1.6-3.3); Glucose 88 mg/dL (70-110); Potassium 4.6 mmol/L (3.5-5.5); Sodium 141 mmol/L (135-145); Total Bilirubin 0.3 mg/dL (0.3-1.2); Total Protein 6.5 g/dL (6.2-8.2)
== END | disposition home or self-care (01) ==
LOC: LABPAT 11:56
PROVIDERS: ATTEND Orthopaedic Surgery
DX: Z01.818 Encounter for other preprocedural examination (principal); M16.11 Unilateral primary osteoarthritis, right hip; Z22.322 Carrier or suspected carrier of Methicillin resistant Staphylococcus aureus
CPT/HCPCS: 36415; 80053; 85027; 85610; 85730; 86850; 86900; 86901; 87070; 93005

== ENCOUNTER 2024-04-04 07:33 | Day surgery (SDC) | payer MEDICARE ==
[2024-03-31 15:51] VITALS: BMI 32.2
[~2024-04-04 07:33] MED LIST changes: -LACTATED RINGERS 1,000 ML IV SCH; +TRANEXAMIC 1,000 MG/100ML-NACL 1,000 MG in SALINE 1 100ML.BAG IVPB PRN
[2024-04-04] MEDS ORDERED: LIDOCAINE 1% (10MG/ML) FOR IV START INTRADERMA PRN (07:47)
[2024-04-04] MEDS ORDERED: fentaNYL (PF) 50 MCG/ML 2 ML AMP IVP PRN (07:47)
[2024-04-04] MEDS: LACTATED RINGERS 1,000 ML IV SCH (08:05)
[2024-04-04] MEDS: IV FLUID CONTINUATION 1,000 ML IV ONE (08:05)
[2024-04-04] MEDS: MELOXICAM 7.5 MG TAB PO PRN (08:09)
[2024-04-04] MEDS: ACETAMINOPHEN TAB 500 MG TAB PO PRN (08:09)
[2024-04-04] MEDS: GABAPENTIN 300 MG CAP PO PRN (08:10)
[2024-04-04] MEDS: ONDANSETRON 4 MG/2 ML VIAL IVP ONE (08:12)
[2024-04-04] MEDS: DEXAMETHASONE SOD PHOSPHATE 4 MG/ML 1 ML VIAL IV ONE (08:12)
[2024-04-04] MEDS: MIDAZOLAM 2 MG/2 ML VIAL IV PRN (08:17)
--- NOTE | 2024-04-04 08:26 | P.ANPRN ---
Procedure Note - Anesthesia - Nerve Block Performed Right Arnaud Single Time Out Performed: Yes Date of Procedure: 04/04/24 Procedure Start Time: Procedure Stop Time: Location of Patient: PreOp Indication: Acute Post-Operative Pain, Analgesia, Requested by Surgeon Sedation Type: Sedate with meaningful contact maintained Preparation: Sterile Prep Position: Supine Catheter: None Needle Types: Pajunk Needle Gauge: 21 Ultrasound used to visualize needle placement: Yes Ultrasound used to observe medication spread: Yes Injectate: 0.5% Ropivacaine (see comment for volume) ([id number]) Blood Aspirated: No Pain Paresthesia on Injection Noted: No Resistance on Injection: Normal Image Stored and Saved: Yes Events: Uneventful and Well Tolerated
[2024-04-04] MEDS ORDERED: NALOXONE 0.4 MG/ML 1 ML VIAL IV PRN (08:46)
[2024-04-04] MEDS ORDERED: MAGNESIUM HYDROXIDE 2,400 MG/30 ML CUP PO PRN (08:46)
[2024-04-04] MEDS ORDERED: ONDANSETRON 4 MG/2 ML VIAL IVP PRN (08:46)
[2024-04-04] MEDS ORDERED: HYDROmorphone 0.5 MG/0.5 ML SYRINGE IVP PRN ×3 (08:46)
[2024-04-04] MEDS: ceFAZolin 1,000 MG in SODIUM CHLORIDE 0.9% 1,000 ML IRRIGATION ONE (08:56)
[2024-04-04] MEDS: ROPIVACAINE 5 MG/ML 30 ML VIAL MISCELLANE ONE ×2 (09:00→10:02)
--- NOTE | 2024-04-04 10:09 | P.OP ---
Date of Procedure: 04/04/24 Preoperative Diagnosis: 1. Severe osteoarthritis, right hip 2. 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 Severe osteoarthritis, right hip 2. 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 The articulation is Oxinium on polyethylene. Anesthesia: BERTA Surgeon: Severiano Dupree Garment Finisher #1: Erika Reed Estimated Blood Loss (ml): 600 Pathology: none sent Condition: stable Disposition: PACU Indications for Procedure: After failure of conservative treatment we discussed the surgical and nonsurgical treatment options at length. Patient wishes to proceed with a total hip arthroplasty with a direct anterior approach. Complications specific to this procedure were discussed at length, including but not limited to infection, leg length discrepancy, dislocation, nerve injury, and fracture. Covid-19 was also discussed at length with the patient, and they are aware of the current policies and procedures. The patient was given the option of delaying surgery, but they elect to proceed knowing these risks. Patient is aware of all these complications and informed consent was obtained Operative Findings: The operative findings are consistent with severe osteoarthritis of the right hip , and avascular necrosis of the right hip with femoral head collapse. Description of Procedure: The patient was seen and evaluated in the preoperative area and the consent was reviewed. The operative site was marked with a skin marker. The patient verified the procedure and operative site. A MALISSA block was placed by anesthesia in the preoperative area. The patient was then brought to the operating room and given preoperative antibiotics intravenously. 1 g of Tranexamic acid was also given intravenously. A general anesthetic was administered by the anesthesia department. The patient was then placed on the Salem table with the bony prominences well-padded. The hip area was then prepped with a ChloraPrep solution and draped in the usual sterile fashion. A universal timeout was then performed, which confirmed the patient's name, surgical site, ALLERGIES, and procedure being performed on the consent. Next the incision site was located at 1 cm distal and 4 cm lateral to the anterior superior iliac spine. The skin and subcutaneous tissues were sharply incised. Incision was carefully dissected down to the fascia overlying the tensor fascia rajendra muscle. This fascia was then incised in line with the muscle fibers. Care was taken to stay laterally in order to avoid injuring the lateral femoral cutaneous nerve. Next, using blunt finger dissection, the tensor fascia rajendra muscle was dissected off its investing fascia. The muscle was then carefully retracted laterally with a cobra retractor over the lateral neck of the femur. Next, the circumflex vessels were identified and cauterized using the Aquamantis device. The anterior hip capsule was then exposed. The capsule was then opened and an inverted T fashion. The retractors were then placed intracapsularly. The retractors were maintained intracapsular throughout the procedure. The proximal femur was then visualized. Fluoroscopic x-rays were then taken in order to evaluate the preoperative leg lengths. A small amount of traction was placed on the leg. The femoral neck was then osteotomized at the appropriate level above the lesser trochanter. A small wedge of bone was then removed from the remaining femoral head. Next, using a corkscrew the femoral head was removed from the acetabulum. On gross visual inspection, the femoral head had complete loss of articular cartilage and multiple periarticular osteophytes. There was also significant collapse of the femoral head and delamination of the articular cartilage globally about the femoral head. These findings are consistent with severe avascular necrosis. The femoral head was then measured. Attention was then turned to the acetabulum. The acetabulum was exposed and any remaining labrum was excised. Sequential reaming of the acetabulum was performed using fluoroscopic guidance until there was a good bed of bleeding cancellus bone. When the appropriate size was reached, a trial was then placed. The position and fit of the trial was checked with fluoroscopy. The trial was then removed. Then, using fluoroscopic guidance, the final implant was impacted at 20 of anteversion and 40 of abduction, and fully seated in the acetabulum. 2 screws were then placed in the acetabulum. Again fluoroscopy was used to check position of the screws. Next, the liner was then impacted, with a 20 elevated liner located in the anterior superior quadrant. Component locking was confirmed. Attention was then directed to the femur. With the aid of the Salem table, the femur was externally rotated to approximately 130, extended, and adducted under the opposite leg. A side hook was then placed under the proximal femur, and the side hook elevator was used to elevate the proximal femur while releasing the capsule. Retractors were then placed. A capsular release was performed, as well as a release of the conjoined tendon, which afforded excellent visualization of the proximal femur. Next, a box osteotome was used to lateralize the proximal femur. A shaper machine hand was then used to locate the femoral canal. Sequential broaching was then performed with appropriate size which afforded excellent fixation in the proximal femur. A trial was then placed with appropriate head and neck, and the hip was gently reduced with the aid of the Salem table. Fluoroscopy was then used to check position of the components, as well as to evaluate the leg lengths and offset. The leg lengths and offset were measured as closely as possible to ensure stability of the hip. The hip was then gently dislocated and the trials were then removed. Final implants were then impacted and the hip was again reduced. Final fluoroscopic x-rays confirmed that the components were in anatomic position. The leg lengths and offset were measured and were found to coincide with the trial measurements. The hip was also taken through range of motion, and found to be stable. The hip was then copiously irrigated with antibiotic solution with pulsatile lavage. The hip was then irrigated with Irrisept solution. The soft tissues were then injected with a ropivacaine solution. A second dose of 1 g of Tranexamic acid was also given intravenously. The fascia was then closed with 2-0 strata fix suture. The subcutaneous tissue was closed with 3-0 Vicryl. The subcuticular tissue was closed with 3-0 moncryl suture. The skin was then closed with Exofin skin glue. After the glue and dried, and Optifoam silver impregnated dressing was applied. The patient was then transferred to the recovery room in stable condition. The instructional assistant RUPESH Galo was required due to the complexity of surgery, and the need for skilled rn medical surgical for positioning, draping, exposure, retraction, and closure of the wound.
--- NOTE | 2024-04-04 10:30 | FL ---
EXAMINATION TYPE: FL guidance operating room, XR Hip Limited RT DATE OF EXAM: 04/04/2024 10:21 AM COMPARISON: Pre Operative Images if available both CT/MRI or plain film CLINICAL INDICATION: Male, 74 years old with history of RT ANTERIOR HIP; TECHNIQUE: FL guidance operating room, XR Hip Limited RT, multiple fluoroscopic images provided for p rocedure. Total fluoroscopy time: 34 seconds Total submitted images to PACS: 5 DAP: 2.5359 mGym2 Gycm2 uGym2 cGycm2 or equivalent. FINDINGS: Fluoroscopic images during internal fixation/arthroplasty demonstrate hardware in appropriate positio n. Hardware appears intact. No immediate complication identified. IMPRESSION: 1. No evidence for intraoperative complication. 2. Please see the operative/procedural note for further details. [facility], , 04/04/2024 10:28 AM
[2024-04-04] MEDS: HYDROmorphone 0.5 MG/0.5 ML SYRINGE IVP PRN (10:47)
[2024-04-04] MEDS: ASPIRIN 325 MG TAB PO SCH (13:38)
[2024-04-04] MEDS: LACTATED RINGERS 1,000 ML IV ONE (13:43)
--- NOTE | 2024-04-04 14:13 | XR ---
EXAMINATION TYPE: XR Hip Limited RT DATE OF EXAM: 04/04/2024 1:52 PM COMPARISON: None. CLINICAL INDICATION: Male, 74 years old with history of Status post hip surgery, assess surgical kenzie garcía, Postoperative evaluation TECHNIQUE: XR Hip Limited RT views were obtained FINDINGS: Noted are changes of total hip arthroplasty with femoral and acetabular components appearing well sea juan. Alignment is anatomic. Postsurgical soft tissue changes are evident. IMPRESSION: Satisfactory postoperative alignment [facility], , 04/04/2024 2:11 PM
[2024-04-04] MEDS: SODIUM CHLORIDE 0.9% 1,000 ML IV SCH (14:26)
[2024-04-04] MEDS: HYDROcodone/APAP 7.5-325MG 1 EACH TAB PO PRN ×2 (14:45→23:07)
[2024-04-04] MEDS: PRAVASTATIN SODIUM 40 MG TAB PO SCH (21:09)
[2024-04-04] MEDS: SENNOSIDES-DOCUSATE SODIUM 1 EACH TAB PO SCH (21:09)
--- NOTE | 2024-04-04 22:36 | P.CONS ---
History of Present Illness - Reason for Consult Consult date: 04/04/24 Medical management - Chief Complaint Right hip arthroplasty - History of Present Illness Patient is a 74-year-old male with a past medical history of hypertension, hyperlipidemia, osteoarthritis, chronic back pain, final stenosis and prior history of smoking was admitted to hospital for elective right total hip arthroplasty. Patient tolerated procedure very well. Currently resting in the bed. 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 Perioperatively patient's blood pressure went up to 176/68 pulse 68 respirations 20 and pulse ox 100% on room air. Patient denied any complaints of chest pain or shortness of breath no nausea or vomiting. Patient is drowsy at this time. Laboratory data is not available. Review of Systems Constitutional: Patient denies any fever or chills . No generalized weakness or weight loss. Abdomen: Patient denied nausea vomiting and diarrhea and abdominal pain. Cardiovascular: Patient denies any chest pain or short of breath no palpitations. Respiratory: patient denied any cough or sputum production. No shortness of breath Neurologic: Patient denied any numbness or tingling. no headache. Musculoskeletal: Patient denies any complaints of joint swelling or deformity. Skin: Negative Psychiatric: Negative Endocrine: No heat or cold intolerance. No recent weight gain. Genitourinary: No dysuria or hematuria. All other 14 point ROS negative except the above Past Medical History Past Medical History: Blood Disorder, GERD/Reflux, Hyperlipidemia, Hypertension, Musculoskeletal Disorder, Osteoarthritis (OA) Additional Past Medical History / Comment(s): back pain,spinal stenosis HX OF SPHEROCYTOSIS, hx colon polyps History of Any Multi-Drug Resistant Organisms: None Reported Past Surgical History: Joint Replacement, Orthopedic Surgery Additional Past Surgical History / Comment(s): both knees replaced, left knee surg., SPLENECTOMY, KYLE CARPAL TUNNEL,KYLE HAND 4TH FINGER TRIGGER RELEASE, RT ROTATOR CUFF, left foot surgery, TRH Past Anesthesia/Blood Transfusion Reactions: No Reported Reaction Additional Past Anesthesia/Blood Transfusion Reaction / Comm: no hx blood transfusion Past Psychological History: No Psychological Hx Reported Smoking Status: Former smoker Past Alcohol Use History: Occasional Additional Past Alcohol Use History / Comment(s): quit smoking ,smoked approx 20 yrs Past Drug Use History: None Reported - Past Family History Father Family Medical History: No Reported History Medications and Allergies Home Medications Medication Instructions Recorded Confirmed Type Loratadine [Claritin] 10 mg PO DAILY 11/22/18 03/31/24 History [place]-3 Fatty Acids/Fish Oil [Fish 2 cap PO DAILY 11/22/18 03/31/24 History Oil 1,000 mg Softgel] Omeprazole [PriLOSEC] 20 mg PO QAM 11/22/18 03/31/24 History Losartan Potassium 50 mg PO QAM 10/22/20 03/31/24 History Pravastatin Sodium [Pravachol] 40 mg PO HS 10/22/20 03/31/24 History Aspirin EC [Ecotrin] 325 mg PO DAILY 11/12/20 03/31/24 History HYDROcodone/APAP 7.5-325MG [[place] 1 tab PO Q6HR PRN 03/31/24 03/31/24 History 7.5-325] Aspirin 325 mg PO BID #60 tab 04/04/24 Rx HYDROcodone/APAP 7.5-325MG [[place] 1 - 2 tab PO Q6H PRN #32 tab 04/04/24 Rx 7.5-325] Sennosides [Senokot] 2 tab PO DAILY PRN #60 tablet 04/04/24 Rx Allergies Allergy/AdvReac Type Severity Reaction Status Date / Time Penicillins Allergy Anaphylaxis Verified 04/04/24 07:50 Physical Exam Vitals: Vital Signs Temp Pulse Resp BP BP Pulse Ox 04/04/24 19:27 98.7 F 93 16 137/72 97 04/04/24 14:26 97.9 F 81 17 154/78 96 04/04/24 13:30 76 18 139/63 100 04/04/24 13:00 74 18 127/58 99 04/04/24 12:30 78 18 125/59 97 04/04/24 12:00 77 20 130/58 97 04/04/24 11:30 76 16 136/63 97 04/04/24 11:15 75 16 142/63 98 04/04/24 11:00 68 18 149/67 100 04/04/24 10:44 68 20 176/68 100 04/04/24 10:29 97.2 F L 77 20 138/76 98 04/04/24 08:25 67 16 155/72 100 04/04/24 08:05 97.8 F 75 16 180/74 98 Intake and Output 04/04/24 04/04/24 04/04/24 06:59 14:59 22:59 Intake Total 1351 Output Total 600 Balance 751 Intake: IV 1351 Output: Estimated Blood Loss 600 Other: # Voids 0 Weight 88.1 kg PHYSICAL EXAMINATION: Patient is lying in the bed comfortably, no acute distress, awake alert and oriented.. HEENT: Normocephalic. Neck is supple. Pupils reactive. Nostrils clear. Oral cavity is moist. Neck reveals no JVD, carotid bruits, or thyromegaly. CHEST EXAMINATION: Trachea is central. Symmetrical expansion. Lung gómez clear to auscultation and percussion. CARDIAC: Normal S1, S2 with no gallops. No murmurs ABDOMEN: Soft. Bowel sounds normal. No organomegaly. No abdominal bruits. Extremities: reveal no edema. No clubbing or cyanosis Neurologically awake, alert, oriented x3 with well-coordinated movements. No focal deficits noted Skin: No rash or skin lesions. Psychiatric: Coperative. Nonsuicidal Musculoskeletal: No joint swelling or deformity. Right hip surgical site intact. Normal range of motion. Assessment and Plan Assessment: Status post right total hip arthroplasty due to severe osteoarthritis of the right hip endovascular necrosis of the right hip with femoral head collapse. Postoperative day 0 Hypertension uncontrolled Hyperlipidemia Osteoarthritis History of chronic back pain spinal stenosis Prior history of smoking GI and DVT prophylaxis as per primary team Plan: Patient with an outpatient medications. Bowel regimen and encourage incentive spirometry. Limit narcotic pain medication use. Started back on home medications including losartan and Prilosec and statins. Titrate dose as needed. Follow-up CBC and BMP tomorrow. Further recommendations based on the clinical course. Thank you kindly for your consult.
--- NOTE | 2024-04-05 07:54 | P.DS ---
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 The patient presented for evaluation as an outpatient. After discussion and consideration patient elects to proceed with total hip arthroplasty. The patient is seen preoperatively by Dr. Dupree and medically cleared for surgery by their primary care physician. Patient is admitted to [facility] on 04/04/2024 for total hip arthroplasty. The procedure is performed without complication or sequelae. The patient is doing well postoperatively. Labs and vital signs are stable on day of discharge. On day of discharge patient's hip incision is healing well. There is minimal erythema. There is no drainage noted at this time. There is minimal soft tissue swelling to the hip and thigh. Patient has full foot and ankle motion without difficulty or pain. Calf is soft and nontender to palpation. Neurovascular status to the right lower extremity is intact. Patient is discharged home in good condition. Please see med rec for accurate list of home medications. Plan - Discharge Summary Discharge Rx Participant: No New Discharge Prescriptions: New HYDROcodone/APAP 7.5-325MG [[place] 7.5-325] 1 - 2 tab PO Q6H PRN #32 tab PRN Reason: Pain Aspirin 325 mg PO BID #60 tab Sennosides [Senokot] 2 tab PO DAILY PRN #60 tablet PRN Reason: Constipation No Action Omeprazole [PriLOSEC] 20 mg PO QAM Loratadine [Claritin] 10 mg PO DAILY [place]-3 Fatty Acids/Fish Oil [Fish Oil 1,000 mg Softgel] 2 cap PO DAILY HYDROcodone/APAP 7.5-325MG [[place] 7.5-325] 1 tab PO Q6HR PRN PRN Reason: Pain Losartan Potassium 50 mg PO QAM Pravastatin Sodium [Pravachol] 40 mg PO HS Aspirin EC [Ecotrin] 325 mg PO DAILY Discharge Medication List Loratadine [Claritin] 10 mg PO DAILY 11/22/18 [History] [place]-3 Fatty Acids/Fish Oil [Fish Oil 1,000 mg Softgel] 2 cap PO DAILY 11/22/18 [History] Omeprazole [PriLOSEC] 20 mg PO QAM 11/22/18 [History] Losartan Potassium 50 mg PO QAM 10/22/20 [History] Pravastatin Sodium [Pravachol] 40 mg PO HS 10/22/20 [History] Aspirin EC [Ecotrin] 325 mg PO DAILY 11/12/20 [History] HYDROcodone/APAP 7.5-325MG [[place] 7.5-325] 1 tab PO Q6HR PRN 03/31/24 [History] Aspirin 325 mg PO BID #60 tab 04/04/24 [Rx] HYDROcodone/APAP 7.5-325MG [[place] 7.5-325] 1 - 2 tab PO Q6H PRN #32 tab 04/04/24 [Rx] Sennosides [Senokot] 2 tab PO DAILY PRN #60 tablet 04/04/24 [Rx] Follow up Appointment(s)/Referral(s): Severiano Dupree DO [Doctor of Osteopathic Medicine] - 2 Weeks Activity/Diet/Wound Care/Special Instructions: Weightbearing as tolerated with walker. Leave dressing intact. Dressing may be removed by home care nurse or by patient in 7 days. Then change dressing twice daily until follow up. May shower with initial dressing intact and after removal. If dressing become saturated, please remove. Please take aspirin 325mg twice daily for 30 days to prevent blood clots. Recommend use of compression stockings daily until follow up to help prevent swelling and blood clots. May remove at night before sleeping. Please follow-up with [facility] in 2 weeks and call with any questions or concerns, . Discharge Disposition: HOME WITH HOME HEALTH SERVICES
[2024-04-05 08:52] LABS: Basophils # (A) 0.01 X 10*3/uL (0.00-0.10); Basophils % (A) 0.1 %; Eosinophils # (A) 0 X 10*3/uL (0.04-0.35); Eosinophils % (A) 0 %; HCT 29.4 % (39.6-50.0); HGB 10.4 g/dL (13.0-17.0); Lymphocytes # (A) 1.66 X 10*3/uL (0.90-5.00); Lymphocytes % (A) 12.6 %; MCH 31.7 pg (27.0-32.0); MCHC 35.4 g/dL (32.0-37.0); MCV 89.6 FL (80.0-97.0); Mean Platelet Volume 10.7 FL (9.5-12.2); Monocytes # (A) 1.36 X 10*3/uL (0.20-1.00); Monocytes % (A) 10.3 %; NRBC Per 100 WBC 0 X 10*3/uL (0.00-0.01); Neutrophils # (A) 10.12 X 10*3/uL (1.80-7.70); Neutrophils % (A) 76.5 %; Platelet Count 388 X 10*3/uL (140-440); RBC 3.28 X 10*6/uL (4.40-5.60); RDW 13.2 % (11.5-14.5); WBC 13.21 X 10*3/uL (4.50-10.00)
[2024-04-05] MEDS ORDERED: NON FORMULARY DRUG (Omega-3 Fatty Acids/Fish Oil [Fish Oil 1,000 Mg Softgel] 1 EACH Capsul PO SCH (09:00)
[2024-04-05 09:10] VITALS: BP 133/61; PULSE 53; RESP 17; TEMP 97.8
[2024-04-05] MEDS: PANTOPRAZOLE 40 MG TABLET PO SCH (10:20)
[2024-04-05] MEDS: LOSARTAN 50 MG TAB PO SCH (10:21)
[2024-04-05] MEDS: LORATADINE 10 MG TAB PO SCH (10:21)
--- NOTE | 2024-04-06 18:30 | P.PN ---
Subjective Progress Note Date: 04/05/24 Reason for Consult Consult date: 04/04/24 Medical management - Chief Complaint Right hip arthroplasty - History of Present Illness Patient is a 74-year-old male with a past medical history of hypertension, hyperlipidemia, osteoarthritis, chronic back pain, final stenosis and prior history of smoking was admitted to hospital for elective right total hip arthroplasty. Patient tolerated procedure very well. Currently resting in the bed. 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 Perioperatively patient's blood pressure went up to 176/68 pulse 68 respirations 20 and pulse ox 100% on room air. Patient denied any complaints of chest pain or shortness of breath no nausea or vomiting. Patient is drowsy at this time. Laboratory data is not available. 04/05/2024 Patient seen and evaluated in follow-up today and is currently up walking the halls reports he is doing fine and anticipating going home. Patient is awaiting medical clearance and has been cleared by orthopedics for discharge home today. Patient reports has some minimal right hip discomfort although manageable on current regimen. Patient instructed to bring incentive spirometer home and continue using at home while awake. Patient to continue with a walker and also recommend outpatient follow-up with primary care provider at next scheduled appointment. Patient is denying any chest pain or shortness of breath. Patient tolerating diet reports the passing gas with no reported bowel movement as of yet. Patient is voiding and is anxious to go home. Patient is medically stable once cleared by orthopedics. Review of systems: Constitutional: No reports of fatigue, fever, or chills Cardiovascular: No reports of chest pain or palpitations Respiratory: No reports of shortness of breath or cough GI: No reports of nausea, vomiting, or diarrhea : No reports of dysuria or retention Neurovascular: No reports of weakness, reports some right minimal hip discomfort All medications have been reviewed PHYSICAL EXAMINATION: Patient is up and walking in the arora, no acute distress, awake alert and oriented.. Elderly appearing HEENT: Normocephalic. Neck is supple. Pupils reactive. Nostrils clear. Oral cavity is moist. Neck reveals no JVD, carotid bruits, or thyromegaly. CHEST EXAMINATION: Trachea is central. Symmetrical expansion. Lung gómez clear to auscultation and percussion. CARDIAC: Normal S1, S2 with no gallops. No murmurs ABDOMEN: Soft. Bowel sounds normal. No organomegaly. No abdominal bruits. Extremities: reveal no edema. No clubbing or cyanosis. Right hip dressing is dry and intact Neurologically awake, alert, oriented x3 with well-coordinated movements. No focal deficits noted Skin: No rash or skin lesions. Psychiatric: Cooperative. Non-suicidal Musculoskeletal: No joint swelling or deformity. Right hip surgical site intact. Normal range of motion. 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 Postoperative day 1 Hypertension uncontrolled Hyperlipidemia Osteoarthritis History of chronic back pain spinal stenosis Obesity with a BMI of 33.3 Prior history of smoking GI and DVT prophylaxis as per primary team Full code Plan: Patient with an outpatient medications. Bowel regimen and encourage incentive spirometry. Limit narcotic pain medication use. Patient has been instructed to take incentive spirometer home and continue using at least 10 times an hour while awake. Patient reports he has 2 at home already and trying to declutter at home as they are moving. Continue home medications and recommend outpatient follow-up with primary care provider at your neck scheduled appointment. Patient is medically stable once cleared by orthopedics. Thank you kindly for this consultation. We will continue to follow with orthopedics during hospitalization. The impression and plan of care has been dictated by Daniela Randle, Nurse Centeno titioner as directed. Dr. Luis MD I have performed a history and examination and MDM of this patient, discussed the same with the dictator, and agree with the dictator's assessment and plan as written ,documented as a scribe. Based on total visit time, I have performed more than 50% of the visit. Objective - Vital Signs Vital signs: Vital Signs Temp 97.8 F 04/05/24 07:06 Pulse 53 L 04/05/24 07:06 Resp 17 04/05/24 07:06 BP 133/61 04/05/24 07:06 Pulse Ox 98 04/05/24 07:06 FiO2 Intake & Output 04/04/24 04/05/24 04/05/24 18:59 06:59 18:59 Intake Total 1351 Output Total 600 2200 Balance 751 -2200 Weight 88.1 kg Intake: IV 1351 Output: Urine 2200 Straight 2200 Estimated Blood Loss 600 Other: # Voids 0 3 1 - Labs CBC & Chem 7: 04/05/24 03:24 Labs: Abnormal Lab Results - Last 24 Hours (Table) 04/05/24 Range/Units 03:24 WBC 13.21 H (4.50-10.00) X 10*3/uL RBC 3.28 L (4.40-5.60) X 10*6/uL Hgb 10.4 L (13.0-17.0) g/dL Hct 29.4 L (39.6-50.0) % Immature Gran # 0.06 H (0.00-0.04) X 10*3/uL Neutrophils # 10.12 H (1.80-7.70) X 10*3/uL Monocytes # 1.36 H (0.20-1.00) X 10*3/uL Eosinophils # 0 L (0.04-0.35) X 10*3/uL
== END 2024-04-05 14:11 | disposition home health service (06) ==
LOC: OR 07:33 → 4SSUR 10:21 → OR 04-05 14:11
PROVIDERS: ATTEND Orthopaedic Surgery
DX: M16.11 Unilateral primary osteoarthritis, right hip (principal); M87.9 Osteonecrosis, unspecified; E66.9 Obesity, unspecified; E78.5 Hyperlipidemia, unspecified; G89.18 Other acute postprocedural pain; G89.29 Other chronic pain; I10 Essential (primary) hypertension; K21.9 Gastro-esophageal reflux disease without esophagitis; Z68.33 Body mass index [BMI] 33.0-33.9, adult; Z79.82 Long term (current) use of aspirin; Z86.0100 Personal history of colon polyps, unspecified; Z87.891 Personal history of nicotine dependence; Z88.0 Allergy status to penicillin; Z98.890 Other specified postprocedural states
CPT/HCPCS: 97161; 97166; 64999; 85025; 73501; 27130; C1776; J2250; J1100; J0690 ×3; J2405; J2795; J1171

== ENCOUNTER 2024-06-16 08:46 | Day surgery (SDC) | payer MEDICARE ==
[2024-06-16 09:10] VITALS: RESP 16; TEMP 98.1
[2024-06-16] MEDS: IV FLUID CONTINUATION 1,000 ML IV ONE ×2 (09:15→10:15)
[2024-06-16] MEDS: LACTATED RINGERS 1,000 ML IV SCH (09:18)
[2024-06-16] MEDS: VANCOMYCIN 1,000 MG in SODIUM CHLORIDE 0.9% 250 ML IVPB STA (09:30)
[2024-06-16] MEDS: SODIUM CHLORIDE 0.9% 250 ML with VANCOMYCIN 1,000 MG IV ONE (09:30)
[2024-06-16] MEDS ORDERED: PROPOFOL 10 MG/ML 20 ML VIAL IV ONE (10:16)
--- NOTE | 2024-06-16 10:36 | P.PCN ---
Date of Procedure: 06/16/24 Procedure(s) Performed: BRIEF HISTORY: Patient is a 74-year-old pleasant white male scheduled for an elective colonoscopy as a part of evaluation abnormal CAT scan of the abdomen that was done in March 2024 that showed some thickening in the left colon. PROCEDURE PERFORMED: Colonoscopy with biopsy. PREOPERATIVE DIAGNOSIS: Abnormal CAT scan of the abdomen. IV sedation per Anesthesia. PROCEDURE: After informed consent was obtained, the patient, was brought into the endoscopy unit. IV sedation was administered by Anesthesia under continuous monitoring. Digital rectal examination was normal. Initially the Olympus CF-160 flexible video colonoscope was then inserted in the rectum, gradually advanced into the cecum without any difficulty. Careful examination was performed as the scope was gradually being withdrawn. Ileocecal valve and the appendiceal orifice were visualized and appeared normal. Prep was excellent. Mucosa of the cecum, ascending colon, transverse colon, descending colon, sigmoid colon, and rectum appeared normal. 4 mm mid rectal polyp that was removed by cold biopsy. R etroflexion was performed in the rectum and no lesions were seen. The patient tolerated the procedure well. IMPRESSION: 4 mm mid rectal polyp status post cold biopsy Rest of the colon appeared normal RECOMMENDATIONS: Findings of this examination were discussed with the patient as well as his family. He was advised to follow-up with the biopsy results. If the biopsy is adenoma he can have repeat colonoscopy in 5 years..
[2024-06-16 10:53] VITALS: BP 111/60; PULSE 66
== END 2024-06-16 11:32 | disposition home or self-care (01) ==
LOC: ORWHC2ENDO 08:46
PROVIDERS: ATTEND Internal Medicine Gastroenterology
DX: K62.1 Rectal polyp (principal); I10 Essential (primary) hypertension; E78.5 Hyperlipidemia, unspecified; K21.9 Gastro-esophageal reflux disease without esophagitis; Z88.0 Allergy status to penicillin; Z79.899 Other long term (current) drug therapy; Z79.82 Long term (current) use of aspirin
CPT/HCPCS: 88305; 45380; J3370; J2704